=== PATIENT | female | born 1965 | race Two or more races ===

== ENCOUNTER 2022-10-21 14:55 | Emergency (ER) | payer OTHER ==
[~2022-10-21] VITALS: Ht 152.4 cm; Wt 100.0 kg
[~2022-10-21 14:55] MED LIST: ACET-2080 PO; BACL10TA PO; IBUP-1554 PO
[2022-10-21 15:03] VITALS: TEMP 98.7
[2022-10-21 15:09] LABS: COVID AG,FIA SOURCE NASAL SWAB
[2022-10-21] MEDS ORDERED: GuaiFENesin/D-METHORPHAN [SUGAR-FREE] 200-20MG/10 ML SYRUP UDCUP PO ONE (15:15)
[2022-10-21] MEDS ORDERED: IBUPROFEN 600 MG TABLET PO ONE (15:15)
[2022-10-21] MEDS ORDERED: ACETAMINOPHEN/CODEINE 300-30 MG TABLET PO ONE (15:15)
[2022-10-21 15:34] LABS: INFLUENZA TYPE A NEGATIVE FOR TYPE A (NEGATIVE); INFLUENZA TYPE B NEGATIVE FOR TYPE B (NEGATIVE)
[2022-10-21] MEDS ORDERED: IBUP-1554 PO (15:58)
[2022-10-21] MEDS ORDERED: BACL10TA PO (15:58)
[2022-10-21] MEDS ORDERED: ACET-66 PO (15:58)
[2022-10-21] MEDS ORDERED: GUAIFDM PO (15:58)
[2022-10-21] MEDS ORDERED: BACLOFEN 10 MG TABLET PO ONE (16:00)
[2022-10-21] MEDS ORDERED: MORPHINE SULFATE 4 MG/ML SYRINGE IM ONE (16:00)
[2022-10-21 17:22] VITALS: BP 138/80; PULSE 88; RESP 16
== END 2022-10-21 17:23 | disposition home or self-care (01) ==
LOC: EMS 14:58
DX: U07.1 COVID-19 (principal); J06.9 Acute upper respiratory infection, unspecified; R25.2 Cramp and spasm; E11.9 Type 2 diabetes mellitus without complications
CPT/HCPCS: 99284; 87426; 87804; 96372; J2270

== ENCOUNTER 2022-10-25 07:04 | Emergency (ER) | payer OTHER ==
[~2022-10-25] VITALS: Ht 152.4 cm; Wt 100.0 kg
[~2022-10-25 07:04] MED LIST changes: +ACET-66 PO; +GUAIFDM PO
[2022-10-25 07:08] VITALS: TEMP 98.7
[2022-10-25 07:59] LABS: BASOPHILS % (AUTO) 0.5 % (0.0-2.0); EOSINOPHILS % (AUTO) 4.1 % (1.0-6.0); HEMATOCRIT 38.2 % (36-46); HEMOGLOBIN 12.9 g/dL (12.0-16.0); LYMPHOCYTES # (AUTO) 3.2 K/uL (1.0-4.8); MEAN CORPUSCULAR HEMOGLOBIN 28.3 pg (26.0-34.0); MEAN CORPUSCULAR HGB CONC 33.7 G/dL (31.0-37.0); MEAN CORPUSCULAR VOLUME 84 fL (80-100); MONOCYTES # (AUTO) 0.5 K/uL (0.1-1.0); MONOCYTES % (AUTO) 6.4 % (2.0-9.0); NEUTROPHILS # (AUTO) 3.8 K/uL (1.8-7.7); PLATELET COUNT (AUTO) 344 K/uL (150-450); RED BLOOD CELL COUNT(AUTO) 4.55 MIL/uL (4.00-5.20); RED CELL DISTRIBUTION WIDTH 14.1 % (11.5-14.5)
[2022-10-25 08:11] LABS: ANION GAP 12 mmol/L (8-16); CALCIUM, TOTAL 8.7 mg/dL (8.8-10.5); CARBON DIOXIDE 25 mmol/L (22-29); CHLORIDE 103 mmol/L (98-107); CREATININE 0.68 mg/dL (0.60-1.30); GLOMERULAR FILTR. RATE CALC > 60 mL/min (>60); GLUCOSE,RANDOM 129 mg/dL (70-110); POTASSIUM 4.4 mmol/L (3.5-5.1); SODIUM SERUM 140 mmol/L (136-145)
[2022-10-25 08:12] LABS: INR 0.9 (0.9-1.1); PROTHROMBIN TIME 9.7 SEC (9.4-11.6)
[2022-10-25 08:16] LABS: ALANINE AMINOTRANSFERASE 49 U/L (12-78); ALBUMIN 3.5 g/dL (3.4-5.0); ALKALINE PHOSPHATASE 96 U/L (46-116); ASPARTATE AMINOTRANSFERASE 21 U/L (15-37); BILIRUBIN,TOTAL 0.2 mg/dL (0.1-1.0); TOTAL PROTEIN, SERUM 7.3 g/dL (6.4-8.2)
[2022-10-25 08:20] LABS: B-TYPE NATRIURETIC PEPTIDE 42 pg/mL (0-100)
[2022-10-25 08:29] LABS: APPEARANCE,URINE CLEAR (CLEAR); BILIRUBIN,URINE NEGATIVE (NEGATIVE); GLUCOSE, URINE (UA) NEGATIVE (NEGATIVE); KETONES,URINE NEGATIVE (NEGATIVE); LEUKOCYTE ESTERASE ,URINE NEGATIVE (NEGATIVE); NITRATE,URINE NEGATIVE (NEGATIVE); OCCULT BLOOD,URINE NEGATIVE (NEGATIVE); PROTEIN,URINE NEGATIVE (NEGATIVE); SPECIFIC GRAVITIY, URINE 1.007 (1.003-1.030); UROBILINOGEN,URINE <=1.0 mg/dL (<=1.0)
[2022-10-25] MEDS ORDERED: HYDROCHLOROTHIAZIDE 25 MG TABLET PO ONE (10:00)
[2022-10-25 10:11] VITALS: BP 164/88; PULSE 75; RESP 15
== END 2022-10-25 10:12 | disposition home or self-care (01) ==
LOC: EMS 07:05
DX: U07.1 COVID-19 (principal); I10 Essential (primary) hypertension; E11.9 Type 2 diabetes mellitus without complications; Z79.899 Other long term (current) drug therapy
CPT/HCPCS: 71045; 80053; 81003; 83880; 84484; 85025; 85610; 85730; 93005; 99285; 36415-L1; 36415-TC

== ENCOUNTER 2023-04-12 12:19 | Emergency (ER) | payer OTHER ==
[~2023-04-12] VITALS: Ht 160 cm; Wt 84.1 kg
[2023-04-12 12:23] VITALS: TEMP 98.1
[2023-04-12] MEDS ORDERED: ATOR20TA65 PO (12:26)
[2023-04-12] MEDS ORDERED: METF-1211 PO (12:26)
[2023-04-12] MEDS ORDERED: LISI2.5T13 PO (12:26)
[2023-04-12 12:34] LABS: COVID AG,FIA SOURCE NASAL SWAB
[2023-04-12 12:43] LABS: SARS-COV2 (COVID) ANTIGEN,FIA Negative (Negative)
[2023-04-12 12:47] LABS: INFLUENZA TYPE A NEGATIVE FOR TYPE A (NEGATIVE); INFLUENZA TYPE B NEGATIVE FOR TYPE B (NEGATIVE); RAPID GROUP A STREP NEGATIVE (NEGATIVE)
[2023-04-12] MEDS ORDERED: IBUPROFEN 600 MG TABLET PO ONE (13:30)
[2023-04-12] MEDS ORDERED: BENZ100C68 PO (15:08)
[2023-04-12] MEDS ORDERED: AZIT250T9 PO (15:08)
[2023-04-12 15:33] VITALS: BP 135/72; PULSE 75; RESP 16
== END 2023-04-12 15:36 | disposition home or self-care (01) ==
LOC: EMS 12:20
DX: J40 Bronchitis, not specified as acute or chronic (principal); E11.9 Type 2 diabetes mellitus without complications; I10 Essential (primary) hypertension; E78.00 Pure hypercholesterolemia, unspecified; Z20.822 Contact with and (suspected) exposure to COVID-19
CPT/HCPCS: 71046; 82962; 87430; 87804; 99284